=== PATIENT | female | born 1990 | race Caucasian/White ===

== ENCOUNTER 2018-03-13 09:57 | Emergency (ER) | END 2018-03-13 11:52 | disposition home or self-care (01) ==

== ENCOUNTER 2018-03-15 06:46 | Emergency (ER) | END 2018-03-15 09:14 | disposition home or self-care (01) ==

== ENCOUNTER 2018-07-05 16:17 | Emergency (ER) | payer MEDICAID, OTHER ==
[~2018-07-05] VITALS: Ht 162.6 cm; Wt 162.0 kg
[~2018-07-05 16:17] MED LIST: ACET325T33 PO; ALBU2.5V3 NEB; AZIT250T PO; ONDA4TAB14 PO; PRED20TA PO
[2018-07-05 16:52] VITALS: Ht 162.6 cm; Wt 162.0 kg
[2018-07-05] MEDS ORDERED: IBUP-1542 PO (20:53)
[2018-07-05] MEDS ORDERED: D-ME473S2 PO (20:53)
[2018-07-05] MEDS ORDERED: AZIT250T PO (20:53)
[2018-07-05] MEDS ORDERED: ALBU2.5V3 NEB (20:55)
--- NOTE | 2018-07-05 20:55 | ERD ---
ER Documentation Chief Complaint Chief Complaint cough , chest congestion , sob, yellow phlegm x 1 week HPI 28-year-old female presents with productive cough for last week. May have had tactile fevers at home but no fever triage. Denies chest pain, vomiting, abdominal pain. She is here with her partner with similar symptoms. ROS All systems reviewed and are negative except as per history of present illness. Medications Home Meds Active Scripts Ibuprofen* (Motrin*) 600 Mg Tab, 600 MG PO Q6, #15 TAB Prov:KRISHAN FRASER MD 07/05/18 Dextromethorphan Hb-Promethazine Hcl* (Promethazine DM* Syrup) 473 Ml Syrup, 5 ML PO Q6 PRN for COUGH for 5 Days, ML Prov:KRISHAN FRASER MD 07/05/18 Azithromycin* (Zithromax*) 250 Mg Tablet, 250 MG PO .ZPACK DIRECTED, #6 TAB TAKE 500 MG (2 TABS) THE FIRST DAY THEN 250 MG (1 TAB) DAYS 2-5 Prov:KRISHAN FRASER MD 07/05/18 Acetaminophen* (Tylenol*) 325 Mg Tablet, 2 TAB PO Q6 PRN for PAIN AND OR ELEVATED TEMP, #20 TAB Prov:MANDA DEL TORO PA-C 03/15/18 Ondansetron (Ondansetron Odt) 4 Mg Tab.rapdis, 4 MG PO Q6H PRN for NAUSEA AND/OR VOMITING, #20 TAB Prov:MANDA DEL TORO PA-C 03/15/18 Prednisone* (Prednisone*) 20 Mg Tab, 60 MG PO DAILY for 4 Days, TAB Start March 14, 2018 Prov:KRISHAN FRASER MD 03/13/18 Albuterol Sulfate* (Albuterol Sulfate* Neb) 0.083%-3 Ml Neb, 2.5 MG NEB Q4 PRN for SHORTNESS OF BREATH, #30 EA Prov:KRISHAN FRASER MD 03/13/18 Azithromycin* (Zithromax*) 250 Mg Tablet, 250 MG PO .ZPACK DIRECTED, #6 TAB TAKE 500 MG (2 TABS) THE FIRST DAY THEN 250 MG (1 TAB) DAYS 2-5 Prov:KRISHAN FRASER MD 03/13/18 Allergies Allergies: Coded Allergies: No Known Allergy (Unverified , 03/15/18) PMhx/Soc Hx Neurological Disorder: No Hx Respiratory Disorders: Yes (pneumonia) Hx Cardiac Disorders: No Hx Psychiatric Problems: No Hx Miscellaneous Medical Probl: No Hx Alcohol Use: No Hx Substance Use: No Hx Tobacco Use: No FmHx Family History: No diabetes, No coronary disease, No other Physical Exam Vitals Vital Signs Date Temp Pulse Resp B/P (MAP) Pulse Ox O2 O2 Flow FiO2 Time Delivery Rate 07/05/18 99.2 104 18 152/72 98 16:52 (98) Physical Exam Const: No acute distress Head: Atraumatic Eyes: Normal Conjunctiva ENT: Normal External Ears, Nose and Mouth. TMs and oropharynx normal. Which wants to Neck: Full range of motion. No meningismus. Resp: Clear to auscultation bilaterally. Coarse cough with rhonchi without rales, wheezing or retractions. Cardio: Regular rate and rhythm, no murmurs Abd: Soft, non tender, non distended. Normal bowel sounds Skin: No petechiae or rashes Back: No midline or flank tenderness Ext: No cyanosis, or edema Neur: Awake and alert Psych: Normal Mood and Affect Procedures/MDM Patient presents with productive cough for last week. She has no evidence of hypoxemia, rest or distress, signs of pneumonia. Will treat empirically with Zithromax, promethazine, ibuprofen empirically. We will also give albuterol for nebulizers at home although no significant wheezing appreciated. The patient was stable with no new complaints during the ER course. Clinically, there is no current evidence to suggest meningitis, sepsis, acute abdomen, pneumonia, stroke, acute coronary syndrome, pulmonary embolism, aortic dissection or any other emergent condition appearing to require further evaluation or hospitalization. Patient counseled regarding my diagnostic impression and care plan. Prior to discharge all questions answered. Pt agrees with treatment plan and understands strict return precautions. Pt is instructed to follow up with primary care provider within 24-48 hours. Precautionary instructions provided including instructions to return to the ER if not improving or for any worsening or changing symptoms or concerns. Departure Diagnosis: Primary Impression: Chest congestion Condition: Stable Patient Instructions: Acute Bronchitis Referrals: NO PRIMARY,CARE PHYSICIAN (PCP) Additional Instructions: Recheck for new or worsening symptoms with primary care doctor. KRISHAN FRASER MD Jul 05, 2018 20:55
[2018-07-05 21:31] VITALS: BP 138/85; PULSE 97; RESP 16
== END 2018-07-05 21:31 | disposition home or self-care (01) ==
LOC: FTE 16:17
DX: R09.89 Other specified symptoms and signs involving the circulatory and respiratory systems (principal)
CPT/HCPCS: 99283